=== PATIENT | female | born 1985 | race African-American/Black ===

== ENCOUNTER 2020-06-05 18:02 | Emergency (ER) | payer OTHER ==
[~2020-06-05] VITALS: Ht 154.9 cm; Wt 99.8 kg
[2020-06-05 18:22] VITALS: BP 179/102
[2020-06-05 19:27] LABS: ABSOLUTE NEUTROPHILS 12.2 thou/uL (1.4-8.2); BASOPHILS 0.4 % (0.0-2.0); EOSINOPHILS 0.9 % (0.0-3.0); HEMATOCRIT 37.4 % (37.0-47.0); HEMOGLOBIN 12.5 gm/dL (12.0-15.0); LYMPHOCYTES 13.5 % (24.0-44.0); MCH 26.9 pg (26.0-34.0); MCHC 33.3 g/dL (28.0-37.0); MCV 80.7 fL (80.0-100.0); MONOCYTES 6.5 % (1.0-8.0); PLATELET COUNT 300 thou/uL (150-400); POLYS 78.7 % (36.0-66.0); RBC 4.63 mil/uL (4.20-5.00); RDW 14.1 % (10.5-14.5); WBC 15.5 thou/uL (4.0-11.0)
[2020-06-05 19:36] LABS: ANION GAP 6 mmol/L (7-16); BUN 9 mg/dL (7-18); CALCIUM 9.8 mg/dL (8.5-10.1); CHLORIDE 104 mmol/L (98-107); CO2 29 mmol/L (21-32); CREATININE 1.1 mg/dL (0.6-1.0); GLUCOSE 101 mg/dL (74-106); POTASSIUM 4.2 mmol/L (3.5-5.1); SODIUM 139 mmol/L (136-145)
[2020-06-05 19:46] LABS: ALBUMIN 3.1 g/dL (3.4-5.0); SGOT 14 U/L (15-37); SGPT 11 U/L (30-65); TOTAL BILIRUBIN 0.3 mg/dL (0.2-1.0); TOTAL PROTEIN 7.3 g/dL (6.4-8.2); TROPONIN-I <0.06 ng/mL (<0.06)
[2020-06-05] MEDS ORDERED: VALSARTAN-HCTZ1 EACH PO (19:47)
[2020-06-05] MEDS ORDERED: ORTHO TRI-CYCL1 EACH PO (19:47)
[2020-06-05] MEDS ORDERED: PRILOSEC OTC20 MG PO (19:48)
[2020-06-05] MEDS ORDERED: FLONASE 0.05%50 MCG NARES (19:48)
[2020-06-06] MEDS ORDERED: DOXYCYCLINE 10100 MG PO (00:45)
[2020-06-06] MEDS ORDERED: NAPROSYN500 MG PO (00:45)
[2020-06-06] MEDS ORDERED: TRAMADOL 50 MG50 MG PO (00:45)
--- NOTE | 2020-06-07 09:35 | EKG ---
[facility] [place] [address] ELECTROCARDIOGRAM REPORT Name: WILL BROWN Room #: DEP [facility]#: [id number] Admission: 06/05/20 Attend Phys: Discharge: 06/06/20 Date of : 83 Report #: [id number] THIS REPORT FOR: cc: Avani Louie MD, Karla L. MD Couchonnal, Luis F. 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: MARÍA : 1985 Requested By: Kashmir Valencia Order Number: [id number] MD: Fabian Pollard Measurements Intervals [place] Rate: 113 P: 33 [place]: 115 QRS: 52 QRSD: 77 T: -24 QT: 306 QTc: 420 Interpretive Statements Sinus tachycardia Probable left atrial enlargement Borderline T abnormalities, diffuse leads Baseline wander in lead(s) III No previous ECG available for comparison Electronically Signed On 06-07-2020 9:34:53 CDT by Fabian Pollard [email or web address] <ELECTRONICALLY SIGNED> By: Fabian Pollard MD 06/07/20 0934 08 08 Fabian Pollard MD /EPI
== END 2020-06-06 01:40 | disposition home or self-care (01) ==
LOC: ER 18:02
PROVIDERS: Emergency Medicine
DX: J18.9 Pneumonia, unspecified organism (principal); R07.89 Other chest pain; I10 Essential (primary) hypertension; J45.909 Unspecified asthma, uncomplicated; Z79.899 Other long term (current) drug therapy; Z88.0 Allergy status to penicillin

== ENCOUNTER 2020-11-11 20:43 | Emergency (ER) | payer OTHER ==
[~2020-11-11] VITALS: Ht 152.4 cm; Wt 99.8 kg
[~2020-11-11 20:43] MED LIST: DOXYCYCLINE 10100 MG PO; FLONASE 0.05%50 MCG NARES; NAPROSYN500 MG PO; ORTHO TRI-CYCL1 EACH PO; PRILOSEC OTC20 MG PO; TRAMADOL 50 MG50 MG PO; VALSARTAN-HCTZ1 EACH PO
[2020-11-11] MEDS ORDERED: BENADRYL25 MG PO (21:27)
[2020-11-11] MEDS ORDERED: PREDNISONE 20 M20 MG PO (21:27)
[2020-11-11 21:50] VITALS: BP 187/113
== END 2020-11-11 22:00 | disposition home or self-care (01) ==
LOC: ER 20:43
DX: T78.40XA Allergy, unspecified, initial encounter (principal); R22.0 Localized swelling, mass and lump, head; J45.909 Unspecified asthma, uncomplicated; I10 Essential (primary) hypertension; Z79.899 Other long term (current) drug therapy; Z88.0 Allergy status to penicillin; Y92.89 Other specified places as the place of occurrence of the external cause